=== PATIENT | male | born 1990 | race Two or more races ===

== ENCOUNTER 2022-03-08 00:12 | Emergency (ER) | payer MEDICAID ==
[~2022-03-08] VITALS: Ht 167.6 cm; Wt 77.1 kg
[2022-03-08 01:38] VITALS: BP 119/72
[2022-03-08] MEDS ORDERED: CYCL5TAB PO (01:45)
[2022-03-08] MEDS ORDERED: IBUP-1957 PO (01:45)
[2022-03-08] MEDS ORDERED: PRED50TA PO (01:45)
[2022-03-08] MEDS ORDERED: CYCLOBENZAPRINE 10 MG TABLET PO ONE (02:00)
[2022-03-08] MEDS ORDERED: DEXAMETHASONE SOD PHOSPHATE 4 MG/ML VIAL IM ONE (02:00)
[2022-03-08] MEDS ORDERED: KETOROLAC TROMETHAMINE INJ 60 MG/2 ML VIAL IM ONE (02:00)
== END 2022-03-08 01:58 | disposition home or self-care (01) ==
LOC: ER 00:14
DX: M54.41 Lumbago with sciatica, right side (principal); F17.200 Nicotine dependence, unspecified, uncomplicated

== ENCOUNTER 2023-10-07 22:53 | Emergency (ER) | payer SELFPAY ==
[~2023-10-07] VITALS: Ht 167.6 cm; Wt 81.6 kg
[~2023-10-07 22:53] MED LIST: CYCL5TAB PO; IBUP-1957 PO; PRED50TA PO
[2023-10-08] MEDS ORDERED: IBUPROFEN 400 MG TABLET ONE (00:31)
[2023-10-08] MEDS ORDERED: AZITHROMYCIN 250 MG TABLET ONE (00:31)
[2023-10-08] MEDS: IBUPROFEN 400 MG TABLET PO ONE (00:34)
[2023-10-08] MEDS: AZITHROMYCIN 250 MG TABLET PO ONE (00:34)
[2023-10-08] MEDS ORDERED: IBUP-1957 PO (00:46)
[2023-10-08] MEDS ORDERED: AZIT250T13 PO (00:46)
[2023-10-08] MEDS ORDERED: BENZ-13 PO (00:46)
[2023-10-08 00:55] VITALS: BP 125/82; TEMP 98.7; O2SAT 98
== END 2023-10-08 00:56 | disposition home or self-care (01) ==
LOC: ER 22:55
DX: J18.9 Pneumonia, unspecified organism (principal); R05.9 Cough, unspecified; F17.200 Nicotine dependence, unspecified, uncomplicated; Z79.52 Long term (current) use of systemic steroids; Z79.899 Other long term (current) drug therapy
CPT/HCPCS: 71045-TC